=== PATIENT | male | born 1950 | race Caucasian/White ===

== ENCOUNTER 2023-12-28 11:09 | Emergency (ER) | payer OTHER, SELFPAY ==
--- NOTE | 2023-12-28 11:12 | XR_ITS ---
WS: [id number] XR chest 1V portable [id number] REASON FOR EXAM: cp FINDINGS: Mild tortuosity of the thoracic aorta. Normal heart size. Calcified granulomas disease in both hemithoraces. Apical subpleural bullous disease bilaterally. Flattening of the hemidiaphragms. No acute or subacute pulmonary parenchymal or pleural abnormality. No significant abnormality of the bony thorax. IMPRESSION: Upper lobe bullous lung disease with mild hyperexpansion. No acute chest abnormality.
--- NOTE | 2023-12-28 11:14 | ECG_ITS ---
[facility] Test Date: 2023-12-28 Pat Name: Pranay Clark Department: Room: Gender: Male Director Prison: : 1950 Requested By: Edgar Moore Order Number: [id number] Marcie MD: Gee Smith M.D. Measurements Intervals [place] Rate: 103 P: 77 AL: 148 QRS: 83 QRSD: 89 T: 68 QT: 312 QTc: 409 Interpretive Statements SINUS TACHYCARDIA ANTEROSEPTAL MYOCARDIAL INFARCTION , OF INDETERMINATE AGE [40+ ms Q WAVE IN V1-V4] No previous ECG available for comparison Electronically Signed On 12-28-2023 11:37:50 HUMAN RESOURCES RECEPTIONIST by Gee Smith M.D. [id number]
[2023-12-28 11:16] VITALS: BP 169/77; PULSE 103; RESP 16; TEMP 36.3; O2SAT 95; BMI 18.3
--- NOTE | 2023-12-28 11:31 | ED_ITS ---
HPI - Chest Pain 2 General: Chief Complaint: Chest Pain Stated Complaint: [facility] sent, chest pain Time Seen by Provider: 12/28/23 11:21 Mode of arrival: ambulatory Limitations: no limitations History of Present Illness: 73-year-old male states that he was driv ing roughly an hour ago started having chest pain states it is a pressure type pain in the center of his chest went down his right arm he is having some shortness of breath with that as well. He states that he felt lightheaded and slightly diaphoretic states that the pain is since resolved he still has some mild pain in his right arm he does have a history of hypertension along with high cholesterol and is a smoker no history of coronary artery disease. Associated symptoms: Reports dyspnea; Deny abdominal pain, fever(s), nausea or vomiting Review of Systems 2 Const: Denies: fever(s), chills, body aches or change in appetite ENMT: Denies: throat pain or dental pain Card: Reports: chest pain Resp: Reports: dyspnea GI: Denies: abdominal pain, nausea, vomiting or diarrhea Musc: Denies: neck pain or back pain Skin/Breast: Denies: rash Neuro: Denies: headache(s) Physical Exam 2 Const: COMMON NORMALS: patient oriented x3 and healthy appearing HENMT: COMMON NORMALS: normocephalic and atraumatic HEAD & SCALP: n ormocephalic and atraumatic Eye: COMMON NORMALS: Equal, round and reactive pupils present and EOMs intact bilaterally PUPIL: Yes Equal, round and reactive pupils present Neck/C-Spine: COMMON NORMALS: full ROM and supple Chest: COMMONS NORMALS: normal inspection of the chest and normal palpation of entire chest wall Resp: COMMON NORMALS: normal respiratory effort, No retractions, No use of accessory muscles and clear to auscultation bilaterally AUSCULTATION: clear to auscultation bilaterally Cardio: COMMON NORMALS: regular rate, regular rhythm and No murmurs present (Cardio) RATE: regular rate RHYTHM: regular rhythm GI: COMMON NORMALS: Normal to inspection, nondistended, normoactive bowel sounds present, Soft to palpation, non-tender and no masses PALPATION: Yes Soft to palpation Extremity: COMMON NORMALS: normal to inspection and full ROM Neuro: COMMON NORMALS: patient oriented x3, moves all extremities and no focal motor deficits Psych: COMMON NORMALS: mental status grossly normal, Normal thought process present and cooperative THOUGHT PROCESS: Normal thought process present Skin: COMMON NORMALS: no rashes or lesions noted and no wounds GENERAL SKIN EXAM: no rashes or lesions noted Course 2 Vital Signs: Vital signs: Vital Signs Temperature 97.3 F L 12/28/23 11:16 Pulse Rate 91 12/28/23 12:14 Respiratory Rate 18 12/28/23 12:14 Blood Pressure 137/93 12/28/23 12:14 Pulse Oximetry 96 12/28/23 13:28 Oxygen Delivery Me thod Room Air 12/28/23 13:28 MDM - Chest Pain Medical Decision Making Patient presents here with chest pain since resolved his initial repeat troponin here is normal he states he feels much improved would like to go home he states he will follow-up with his primary care doctor he is to return if worsening he understands agrees to plan. Medical Records I reviewed the patient's medical records. Lab Data I reviewed the patient's lab results. 12/28/23 11:27 12/28/23 11:27 Laboratory Results WBC 7.84 10^3/uL (3.29-11.43) 12/28/23 11:27 RBC 4.59 10^6/uL (3.85-5.65) 12/28/23 11:27 Hgb 15.20 g/dL (11.27-16.99) 12/28/23 11:27 Hct 45.1 % (37-53) 12/28/23 11:27 MCV 98.3 fl (82-101) 12/28/23 11:27 MCH 33.1 pg (27-33) H 12/28/23 11:27 MCHC 33.7 g/dL (30-55) 12/28/23 11:27 RDW 12.6 % (12.1-15.1) 12/28/23 11:27 Plt Count 262 10^3/cmm (157-399) 12/28/23 11:27 MPV 9.4 fL (7.4-10.4) 12/28/23 11:27 Neut % (Auto) 58.8 % 12/28/23 11:27 Lymph % (Auto) 25.5 % 12/28/23 11:27 [place] % (Auto) 12.0 % 12/28/23 11:27 Eos % (Auto) 2.3 % 12/28/23 11:27 Baso % (Auto) 1.3 % 12/28/23 11:27 Neut # (Auto) 4.61 10^3/uL (1.8-7.7) 12/28/23 11:27 Lymph # (Auto) 2.0 10^3/uL (0.8-4.8) 12/28/23 11:27 [place] # (Auto) 0.9 10^3/uL (0.2-0.9) 12/28/23 11:27 Eos # (Auto) 0.2 10^3/uL (0.0-0.8) 12/28/23 11:27 Baso # (Auto) 0.1 10^3/uL (0.0-0.1) 12/28/23 11:27 Nucleated RBC % (auto) 0 % 12/28/23 11:27 Nucleated RBCs # 0.0 /100WBC 12/28/23 11:27 PT 13.60 SECONDS (12.1-14.9) 12/28/23 11:27 INR 1.00 (0.8-1.2) 12/28/23 11:27 Sodium 141 mmol/L (136-145) 12/28/23 11:27 Potassium 4.2 mmol/L (3.5-5.1) 12/28/23 11:27 Chloride 101 mmol/L (98-107) 12/28/23 11:27 Carbon Dioxide 26 mmol/L (22-29) 12/28/23 11:27 Anion Gap 18.2 (5-19) 12/28/23 11:27 BUN 14 mg/dL (8-23) 12/28/23 11:27 Creatinine 0.7 mg/dL (0.7-1.2) 12/28/23 11:27 GFR Calculation Not Reportable 12/28/23 11:27 Glucose 98 mg/dL (65-115) 12/28/23 11:27 Calculated Osmolality 292 mOsm/kg (285-295) 12/28/23 11:27 Calcium 9.2 mg/dL (8.5-10.5) 12/28/23 11:27 Total Bilirubin 0.5 mg/dL (0.15-1.2) 12/28/23 11:27 AST 28 U/L (0-40) 12/28/23 11:27 ALT 20 U/L (0-41) 12/28/23 11:27 Alkaline Phosphatase 83 U/L (40-130) 12/28/23 11:27 Troponin T Baseline 8 ng/L (0-15) 12/28/23 11:27 Troponin T 120 Minute 10.20 ng/L (0-15) 12/28/23 13:28 Delta Troponin T 2.20 ABS# (0-10) 12/28/23 13:28 Total Protein 7.5 g/dL (6.6-8.7) 12/28/23 11:27 Albumin 4.5 g/dL (3.5-5.2) 12/28/23 11:27 Globulin 3.0 g/dL (1.3-4.6) 12/28/23 11:27 Lipase 29 U/L (13-60) 12/28/23 11:27 All radiology interpretation(s) finalized by discharge EKG Data EKG 1: I personally reviewed and interpreted this EKG as follows: EKG interpretation date: 12/28/23 EKG interpretation time: 11:14 Interpretation: sinus tach hr [address] elevation qrs 89 qtc 372 EKG 2: I personally reviewed and interpreted this EKG as follows: EKG interpretation date: 12/28/23 EKG interpretation time: 13:02 Interpretation: nsr hr [address] elevation qrs 81 qtc 379 Discharge Plan Discharge Patient Disposition: Home Clinical Impression: Chest pain Condition: Stable Prescriptions: No Action multivitamin Tablet 1 tab PO QAM rosuvastatin 20 mg Tablet 10 mg PO DAILY Vitamin D3 125 mcg (5,000 unit) Tablet 5,000 unit PO BID Refresh Plus 0.5 % Dropperette 1 drp OPHTHALMIC (EYE) BID Discharge Orders: Discharge ED (Routine); Ordered 12/28/23 Ordered By: Edgar Moore Discharge Diet: Advance as tolerated Discharge Activity: Resume usual activity Patient Instructions: Chest Pain (ED) Coding Level of Care Code ED Soap Drier Operator for Dominick Woods
[2023-12-28 11:34] LABS: Basophils # 0.1 10^3/uL (0.0-0.1); Basophils % 1.3 %; Eosinophils # 0.2 10^3/uL (0.0-0.8); Eosinophils % 2.3 %; Hematocrit 45.1 % (37-53); Lymphocytes % 25.5 %; Mean Corpuscular HGB Conc 33.7 g/dL (30-55); Mean Corpuscular Hemoglobin 33.1 pg (27-33); Mean Corpuscular Volume 98.3 fl (82-101); Mean Platelet Volume 9.4 fL (7.4-10.4); Monocytes # 0.9 10^3/uL (0.2-0.9); Neutrophils # 4.61 10^3/uL (1.8-7.7); Neutrophils % 58.8 %; Nucleated Red Blood Cells % 0 %; Platelet Count 262 10^3/cmm (157-399); Red Blood Count 4.59 10^6/uL (3.85-5.65); Red Cell Distribution Width 12.6 % (12.1-15.1); White Blood Count 7.84 10^3/uL (3.29-11.43)
[2023-12-28 11:55] LABS: Alanine Aminotransferase 20 U/L (0-41); Albumin Level 4.5 g/dL (3.5-5.2); Alkaline Phosphatase 83 U/L (40-130); Anion Gap 18.2 (5-19); Aspartate Amino Transferase 28 U/L (0-40); Blood Urea Nitrogen 14 mg/dL (8-23); Calcium 9.2 mg/dL (8.5-10.5); Carbon Dioxide 26 mmol/L (22-29); Chloride 101 mmol/L (98-107); Creatinine Clr Calc Pharmacy 64.6044; Glucose 98 mg/dL (65-115); Lipase 29 U/L (13-60); Osmolality Calculated 292 mOsm/kg (285-295); Potassium 4.2 mmol/L (3.5-5.1); Sodium 141 mmol/L (136-145); Total Bilirubin 0.5 mg/dL (0.15-1.2); Total Protein 7.5 g/dL (6.6-8.7)
[2023-12-28 11:56] LABS: Troponin(5th) Baseline 8 ng/L (0-15)
--- NOTE | 2023-12-28 11:56 | PC.PHAR ---
Addendum entered by Darlene Zimmerman 12/28/23 13:53: [facility] faxed back and sent letter saying there is no documentation for the pt so no way to verify crestor mg Original Note: pt states he takes care of his medications-pt states the va told him he didnt have to take crestor pt states dr told him that about 4 months ago but states he has still been taking states stop taking monday12/25/23-pt states he was on a 81mg aspirin daily states the va dr lawrence 4 months ago-pt states he is now taking vitamin d3 bid and a multivitamin daily-pt states he is unsure of the mg of the crestor he has been taking but states he thinks it was half of a 20mg tab-[place]ing [place] med [place] to verify mg of crestor-
[2023-12-28 12:14] VITALS: BP 137/93; PULSE 91; RESP 18; O2SAT 95
--- NOTE | 2023-12-28 13:02 | ECG_ITS ---
[facility] Test Date: 2023-12-28 Pat Name: Pranay Clark Department: Room: Gender: Male Microarray Operations Vice President: : 1950 Requested By: Edgar Moore Order Number: [id number] Marcie MD: Gee Smith M.D. Measurements Intervals [place] Rate: 80 P: 63 [place]: 164 QRS: 75 QRSD: 81 T: 76 QT: 342 QTc: 397 Interpretive Statements SINUS RHYTHM ANTEROSEPTAL MYOCARDIAL INFARCTION , OF INDETERMINATE AGE [40+ ms Q WAVE IN V1-V4] Compared to ECG 12/28/2023 11:14:41 Sinus tachycardia no longer present Myocardial infarct finding still present Electronically Signed On 12-29-2023 9:36:07 LABORATORY ANIMAL FACILITY SUPERVISOR by Gee Smith M.D. [email or web address] INFORMATION [email or web address]/store/OM/[id number]
[2023-12-28 13:28] VITALS: O2SAT 96
--- NOTE | 2023-12-29 10:42 | PC.SOCIAL ---
[facility]
== END 2023-12-28 14:17 | disposition home or self-care (01) ==
PROVIDERS: Emergency Provider Emergency Medicine
DX: R07.9 Chest pain, unspecified (principal)
CPT/HCPCS: 36415; 71045; 80053; 83690; 84484; 85025; 85610; 93005; 99285

== ENCOUNTER 2024-01-25 08:46 | Outpatient (CLI) | payer OTHER, SELFPAY ==
--- NOTE | 2024-01-25 | ECG_ITS ---
[facility] Test Date: 2024-01-25 Pat Name: Pranay Clark Department: Room: Gender: Male Clinical Rehabilitation Specialist: : 1950 Requested By: Lizzie Dwyer Order Number: [id number] Marcie MD: Ramos Bishop M.D. Interpretive Statements NAME OF STUDY: EXERCISE SESTAMIBI STRESS TEST INDICATION:, PROCEDURE: The baseline electrocardiogram showed normal sinus rhythm with a poor R wave progression. Possible old anteroseptal [place].. At the baseline, the patient's blood pressure was 160/94 mm Hg with a heart rate of 100. The patient exercised for 5 minutes and 59 seconds on a standard Omer protocol. Patient attained a maximum heart rate of 127 beats per minute(86% of the maximum predicted heart rate) with a blood pressure at the peak exercise of 192/81 mm Hg. The EKG at the peak exercise revealed no significant changes. Patient did not have any chest pain or any significant arrhythmis with the exercise Sestamibi was injected 1 minute prior to the peak exercise During the recovery phase, there were no new changes. Blood pressure at the end of the recovery phase was 137/76 mm Hg with a heart rate of 98 per minute. CONCLUSION: 1. No significant EKG changes with the treadmill exercise 2. No exercise-induced chest pain or cardiac arrhythmia 3. Slightly impaired exercise tolerance, attained a maximum of 7 point METs 4. Sestamibi/Sestamibi perfusion results pending; see separate report. Electronically Signed On 01-27-2024 20:48:31 VENEER LATHE OPERATOR by Ramos Bishop M.D. [email or web address] Access [id number]
--- NOTE | 2024-01-25 09:37 | NMCV_ITS ---
NM oli perf SPECT r/s* [id number] Pranay Clark Age: 73 Gender: M : 1950 Exam Date: 01/25/2024 09:59 Ordering Phys: Lizzie Dwyer MD Technologist: JETHRO Gonzalez Exam Location: [facility] Indications: ATHEROSCLEROTIC HEART DISEASE, CHEST PRESSURE STRESS TEST [facility] IMAGE PROTOCOL Rest/Stress 1 Exercise Day Radiopharmaceutical Dose (mCi) Administration Site Administered by Rest: Tc-99m 10.6 IV JETHRO Sanchez Sestamibi Stress:Tc-99m 32.2 IV JETHRO Sanchez Sestamibi Rest: 25-Jan-2024 0 Discovery 630 Stress: 25-Jan-2024 30 Discovery 630 Radiopharmaceutical was injected at 86 % maximum heart rate. Images obtained in supine and prone position. SPECT RESULTS Technical Quality: Excellent Raw Data Analysis: Normal Image Corrections: No attenuation or motion correction applied Summed Stress Score: 4 Summed Rest Score: 4 Summed Difference Score: 1 PERFUSION FINDINGS Small to moderate area of minimal moderately decreased tracer uptake involving the mid and apical inferior, mid inferoseptal and apical septal regions. Subtle area of reversibility was noted in the mid inferior region FUNCTIONAL RESULTS (calculated via Gated SPECT) Stress Image LV EF (%): 78 Stress EDV (mL):54 TID: 0.81 Stress ESV (mL):12 FUNCTIONAL FINDINGS: Segmental wall motion analysis revealing no gross wall motion abnormalities IMPRESSIONS 1. Myocardial perfusion imaging revealing small to moderate area of minimal to moderately decreased tracer uptake involving the inferior, inferoseptal and apical regions with a subtle areas of reversibility suggesting myocardial scarring in the distribution of the right coronary artery with subtle areas of kimberlyn-infarction ischemia. 2. Normal LV ejection fraction 78%. 3. LV wall motion analysis revealing no gross wall motion abnormalities. 4 . Normal LV volume No similar previous studies are available for comparison Dr Ramos Bishop MD FAC (Electronically Signed) Final Date: 25 January 2024 16:47 S
[2024-01-25 09:43] VITALS: BMI 19.0
[2024-01-25 11:11] VITALS: BP 137/76; PULSE 96
== END 2024-01-25 08:47 | disposition home or self-care (01) ==
LOC: CDL 08:48
PROVIDERS: PCP Family Medicine; Visit Provider Family Medicine
DX: I25.10 Atherosclerotic heart disease of native coronary artery without angina pectoris (principal); R07.89 Other chest pain
CPT/HCPCS: 36415; 78452; 93017; 96374; A9500

== ENCOUNTER → 2024-04-30 12:41 | Outpatient (BNVA) | payer OTHER, SELFPAY | PROVIDERS: PCP Family Medicine; Visit Provider Dermatology | DX: L72.0 Epidermal cyst (principal); L70.8 Other acne; D48.5 Neoplasm of uncertain behavior of skin; D22.5 Melanocytic nevi of trunk; L81.4 Other melanin hyperpigmentation | CPT/HCPCS: 11102; 99203 ==

== ENCOUNTER → 2024-08-26 07:41 | Outpatient (BNVA) | payer OTHER, SELFPAY | PROVIDERS: PCP Family Medicine; Referring Provider Family Medicine; Visit Provider Internal Medicine Cardiovascular Disease | DX: R94.39 Abnormal result of other cardiovascular function study (principal); I10 Essential (primary) hypertension; Z72.0 Tobacco use | CPT/HCPCS: 99204 ==

== ENCOUNTER → 2024-10-16 10:00 | Outpatient (BNVA) | payer OTHER, SELFPAY | PROVIDERS: PCP Family Medicine; Referring Provider Family Medicine; Visit Provider Surgery | DX: R13.10 Dysphagia, unspecified (principal) | CPT/HCPCS: 99204 ==

== ENCOUNTER 2024-10-28 09:11 | Outpatient (CLI) | payer OTHER, SELFPAY ==
--- NOTE | 2024-10-28 10:00 | FL_ITS ---
WS: [id number] Exam: FL barium swallow modifd [id number] Date/Time of Exam: 10/28/2024 9:49 AM Reason For Exam: Fluoroscopy time: 3min 23.174551otx minutes # of spot films: 0 Modified barium swallow test is performed in conjunction with the speech therapy service. The patient experienced moderate spillage and pooling of all consistencies of barium mixture foodstuf fs into the vallecula. The patient had significant penetration into the laryngeal inlet when swallowi ng thin liquid barium. Mild penetration also observed when the patient ingested nectar consistency ba rium foodstuffs. No aspiration occurred. The patient had some difficulty swallowing the barium tablet however the tablet passed into the stomach without obstruction. FL/FL barium swallow modifd [id number] IMPRESSION: 1. The patient experienced penetration into the laryngeal inlet particularly wh en thin liquid barium was ingested. Mild penetration also observed with nectar consistency liquid. No aspiration was identified. Other findings as detailed ab ove.
== END 2024-10-28 09:12 | disposition home or self-care (01) ==
LOC: RAD 09:11
PROVIDERS: PCP Family Medicine; Visit Provider Surgery
DX: R93.3 Abnormal findings on diagnostic imaging of other parts of digestive tract (principal); R13.10 Dysphagia, unspecified
CPT/HCPCS: 74230; 92611

== ENCOUNTER → 2024-12-04 15:17 | Outpatient (BNVA) | payer OTHER, SELFPAY | PROVIDERS: PCP Family Medicine; Visit Provider Surgery | DX: R13.13 Dysphagia, pharyngeal phase (principal) | CPT/HCPCS: 99212 ==

== ENCOUNTER → 2024-12-06 08:49 | Outpatient (BNVA) | payer OTHER, SELFPAY | PROVIDERS: PCP Family Medicine; Visit Provider Internal Medicine Cardiovascular Disease | DX: I10 Essential (primary) hypertension (principal); I25.9 Chronic ischemic heart disease, unspecified; Z87.891 Personal history of nicotine dependence | CPT/HCPCS: 99214 ==

== ENCOUNTER 2025-02-06 07:39 | Outpatient (CLI) | payer OTHER, SELFPAY ==
--- NOTE | 2025-02-06 07:50 | CTR_ITS ---
PROCEDURE INFORMATION: Exam: CT Neck With Contrast Exam date and time: 02/06/2025 8:19 AM Age: 74 years old Clinical indication: Dysphagia / difficulty swallowing; Additional info: Worsening dysphagia TECHNIQUE: Imaging protocol: Computed tomography of the neck with contrast. Radiation optimization: All CT scans at this facility use at least one of these dose optimization techniques: automated exposure control; mA and/or kV adjustment per patient size (includes targeted exams where dose is matched to clinical indication); or iterative reconstruction. Contrast material: OMNI 350; Contrast volume: 100 ml; Contrast route: INTRAVENOUS (IV); COMPARISON: No relevant prior studies available. RADIATION DOSE METRICS: Total DLP (mGy-cm): 142.01 FINDINGS: Salivary glands: Normal. Glands are normal in size. Pharynx: Unremarkable. No significant tonsillar enlargement. Larynx: Unremarkable. Epiglottis is normal. Thyroid: Normal. No enlarged or calcified nodules. Trachea: Visualized trachea is unremarkable. Lungs: Nodular apical scarring, pleural blebs and emphysematous change is noted. Lymph nodes: There is no suspicious cervical lymphadenopathy. Calcified lymphadenopathy is noted in the right tracheoesophageal groove measuring up to 12 mm in maximum short axis dimension. Mediastinal lymphadenopathy is incompletely imaged measuring at least 11 mm in maximum short axis dimension in the aortopulmonary window. Bones/joints: Cervical spondylosis is noted. Soft tissues: Unremarkable. No significant soft tissue swelling. CT/CT neck w con* [id number] IMPRESSION: No suspicious soft tissue mass, drainable fluid collection in the neck. Mediastinal lymphadenopathy incompletely imaged. CT of the thorax with intravenous contrast may be performed to more completely imaged.
[2025-02-06] MEDS: iohexol 350 mg/mL 500 mL Btl (per mL) IV (08:29)
== END 2025-02-06 07:40 | disposition home or self-care (01) ==
PROVIDERS: PCP Family Medicine; Visit Provider Otolaryngology
DX: R13.14 Dysphagia, pharyngoesophageal phase (principal); J98.4 Other disorders of lung; R91.8 Other nonspecific abnormal finding of lung field; J43.9 Emphysema, unspecified; I89.8 Other specified noninfective disorders of lymphatic vessels and lymph nodes; M47.892 Other spondylosis, cervical region
CPT/HCPCS: 70491

== ENCOUNTER 2025-02-20 07:58 | Outpatient (CLI) | payer OTHER, SELFPAY ==
--- NOTE | 2025-02-20 08:00 | FL_ITS ---
WS: [id number] FL barium swallow [id number] REASON FOR EXAM: DYSPHAGIA,PHARYNGOESOPHAGEAL FLUOROSCOPY TIME: 2min [id number] # OF SPOT FILMS: 1 FINDINGS: Patient was examined in the upright PA and lateral projections and in the prone GUZMAN position. The swallowing of barium was monitored fluoroscopically and multiple rapid sequence spot films obtained. Evaluation of the cervical esophagus demonstrated a significant persistent hypertrophic cricopharyngeal narrowing during swallowing and with a larger swallow significant aspiration was identified. The remainder of the examination was performed with small swallows of barium with no further aspiration. Patient had momentary episode of coughing which he noted was common place for him. There was minimal dysmotility in the thoracic esophagus with intermittent tertiary contractions. No significant hiatal hernia and no stricture. FL/FL barium swallow [id number] IMPRESSION: Significant cricopharyngeal sphincter hypertrophy and spasm which resulted in a single episode of significant aspiration during swallowing in the upright posi tion. Minimal dysmotility in the thoracic esophagus. No esophageal stricture.
== END 2025-02-20 07:59 | disposition home or self-care (01) ==
PROVIDERS: PCP Family Medicine; Visit Provider Otolaryngology
DX: R13.14 Dysphagia, pharyngoesophageal phase (principal); R93.89 Abnormal findings on diagnostic imaging of other specified body structures
CPT/HCPCS: 74220

== ENCOUNTER → 2025-04-18 08:40 | Outpatient (BNVA) | payer OTHER, SELFPAY | PROVIDERS: PCP Family Medicine; Visit Provider Physician Assistant | DX: M79.642 Pain in left hand (principal); M65.342 Trigger finger, left ring finger | CPT/HCPCS: 73130; 99204 ==

== ENCOUNTER → 2025-05-01 12:49 | Outpatient (BNVA) | payer OTHER, SELFPAY | PROVIDERS: PCP Family Medicine; Visit Provider Dermatology | DX: L72.0 Epidermal cyst (principal); L70.8 Other acne; D22.5 Melanocytic nevi of trunk; L81.4 Other melanin hyperpigmentation; L82.1 Other seborrheic keratosis; D48.5 Neoplasm of uncertain behavior of skin | CPT/HCPCS: 11102; 99213 ==

== ENCOUNTER → 2025-06-26 12:49 | Outpatient (BNVA) | payer OTHER, SELFPAY | PROVIDERS: PCP Family Medicine; Visit Provider Internal Medicine Cardiovascular Disease | DX: I25.9 Chronic ischemic heart disease, unspecified (principal); I10 Essential (primary) hypertension; E78.5 Hyperlipidemia, unspecified; R91.1 Solitary pulmonary nodule; M65.342 Trigger finger, left ring finger; F32.A Depression, unspecified; Z79.82 Long term (current) use of aspirin; F17.210 Nicotine dependence, cigarettes, uncomplicated | CPT/HCPCS: 99214 ==

== ENCOUNTER 2025-07-31 05:47 | Day surgery (SDC) | payer OTHER, SELFPAY ==
[2025-07-31] VITALS (8 sets, daily range): BP systolic 92–154; BP diastolic 53–97; PULSE 60–78; RESP 16–18; TEMP 36.3–36.4; O2SAT 95–98; BMI 19.4
[2025-07-31] MEDS: acetaminophen 1,000 MG/100 ML PIGGYBACK 400 MG IV (06:23)
--- NOTE | 2025-07-31 07:04 | W.PM.OPSFHP ---
Same Day Surgery H&P Indication for Procedure/HPI DATE OF PROCEDURE: July 31, 2025 CHIEF COMPLAINT/INDICATIONFOR SURGICAL PROCEDURE: Left ring finger trigger PREOP DIAGNOSIS: Left ring finger trigger PLANNED PROCEDURE: Operation Date: 07/31/25 07:00 Proposed Procedures p LEFT RING Trigger Finger Release(Left) - Earnest Sandy, DO Medications/Allergies* Home Medications ?Medication ?Instructions ?Recorded ?Confirmed ?Type carboxymethylcellulose sodium 0.5 1 drp ophthalmic (eye) BID 12/28/23 07/29/25 History % eye drops in a dropperette (Refresh Plus) cholecalciferol (vitamin D3) 125 5,000 unit PO BID 12/28/23 07/29/25 History mcg (5,000 unit) tablet (Vitamin D3) multivitamin 1 tab PO QAM 12/28/23 07/29/25 History aspirin 81 mg tablet,delayed 81 mg PO DAILY 08/26/24 07/29/25 History release (Adult Aspirin Regimen) diclofenac sodium 1 % topical gel 2 g topical ONCE PRN Pain 04/18/25 07/29/25 History (Voltaren Arthritis Pain) tamsulosin 0.4 mg capsule (Flomax) 0.4 mg PO DAILY 04/18/25 07/29/25 History trazodone 100 mg tablet 50 mg PO DAILY 07/29/25 07/29/25 History Allergies/Adverse Reactions Allergy/AdvReac Type Severity Reaction Status Date / Time Penicillins Allergy ALGY-Anaphy Verified 07/29/25 14:15 laxis Current Medications: Generic Name Dose Route Start Last Admin Trade Name Freq PRN Reason Stop Dose Admin Sodium Chloride 1,000 mls @ 30 mls/hr 07/31/25 06:00 07/31/25 06:24 Sodium Chloride 0.9% IV 08/01/25 05:59 30 mls/hr .Q24H FARRUKH Administration Pertinent History/Comorbid Conditions* Medical History (Updated 07/15/25 @ 09:19 by Margaret Gallardo) Ischemic heart disease Essential hypertension Social History Smoking and tobacco/nicotine status: current every day tobacco/nicotine user (Quit 11/03/24) cigarettes Alcohol intake: current Alcohol intake frequency: 0-2 Drinks per Day Pertinent Exam Findings alert, oriented x 3, operative site marked and procedure specific exam findings Please refer to detail orthopedic examination on 04/18/2025 listed below: Left Hand exam-negative Tinel's and negative Phalen's test. . Full range of motion in fingers and wrist and fingers are warm and well-perfused with normal cap refill under 2 seconds. Radial pulse 2+, no intrinsic muscle weakness noted. Left ring finger?A1 stephanie tenderness mechanical locking and catching Recommendations Risks and benefits of procedure reviewed and Patient/family agree to proceed Surgery/Procedure today Other Plans: Plan to proceed to the OR today for left ring finger trigger release. Patient understands the ins outs procedure the risk benefits complication alternatives surgical nonsurgical treatment options. Understanding risk of surgery patient was proceed with surgical invention. All questions answered at this time. Coding Level of Care Code Acute Code for g Fwd
--- NOTE | 2025-07-31 07:38 | P.BOP_ITS ---
Date of Procedure: 07/31/2025 Surgeon: Earnest Sandy DO Highway Construction Inspector(s): None Procedure(s) performed: Left ring finger trigger release Findings of the procedure(s): Underwent procedure without issues or complications taken recovery stable condition Estimated blood loss: 1 mL Specimen(s) removed: None Post-operative diagnosis: Left ring finger trigger
--- NOTE | 2025-07-31 07:38 | PM.OP ---
Operative Report Date of procedure: July 31, 2025 Surgeon: Earnest Sandy DO Procedure: Preoperative diagnosis: Left ring finger trigger Post-op diagnosis: Same Procedure done: Left Ring finger?trigger?release Surgeon: Earnest Sandy DO Estimated blood loss: 1cc Tourniquet time 4mins Complications: None Condition: stable Disposition: same day Brief History: Patient's been seen and worked up in the outpatient setting and findings consistent with preoperative diagnosis of Left Ring finger?trigger.? He is failed conservative treatment.? Continues to have mechanical locking and catching.? Severe pain as well.? We talked about treatment options nonoperative versus operative intervention.? ?Patient understands the risk benefits complication alternatives of surgical nonsurgical treatment options.? Understanding his risks with surgery he elects proceed with surgical intervention.? Consent obtained in the preoperative holding area.? Here today to proceed with surgical intervention for left ring finger trigger release, all questions answered. Procedure: Patient was seen and evaluated in the preoperative holding area.? Consent was reviewed and signed with patient.? Seen evaluated by Anesthesia Department.? Once cleared for surgery was brought back to the operative suite.? Placed in supine position on the OR table all bony prominences well-padded patient properly secured to the bed.? Patient's Left arm was then placed to the armboard.? A nonsterile tourniquet applied to the Left upper arm.? Patient's Left upper extremity was then prepped and draped in standard orthopedic fashion.? Final timeout performed.? Patient received appropriate preoperative antibiotics. Esmarch tourniquet was used exsanguinate the Left upper extremity tourniquet insufflated to 250 mmHg. Under sterile aseptic technique local digital block was performed to the Left Ring finger.? Once appropriately anesthetized a standard longitudinal/oblique incision was made centering over the A1 stephanie following patient's flexor crease.? Sharp scalpel incision was made only through skin and then switched to Littler dissection scissors and spread longitudinally directly over the flexor tendon sheath.? I then mobilized both radially and ulnarly and Kasdan retractors were used and placed by my pastrycook's assistant to protect neurovascular bundle.? Next I visualized the A1 stephanie and this was incised with a scalpel.? I then switched to dissection scissors and?released the A1 stephanie both proximally as well as distally to its entirety.? Significant tendon sheath fluid was noted consistent with inflammation.? Mild fraying of the flexor tendons noted but no tear.? At this point I utilized a rag nail and pulled the tendons FDS and FDP out of the incision and no?triggering was noted.? I then had anesthesia wake up the patient and patient was able to actively flex and extend with no?triggering.? This point thorough irrigation was performed.? Tourniquet deflated hemostasis satisfactory with bipolar.? I then subsequently closed the incision with interrupted nylon suture.? Xeroform 4 x 4's, Kerlix and an Brandon wrap was applied for a bulky soft dressing.? Patient was then subsequently awakened from anesthesia and taken to PACU in stable condition tolerated procedure without issues. Disposition: Patient taken back in stable condition recovering well.? Patient will receive appropriate discharge instruction as well as pain medication postoperatively.? Patient to follow-up with me in the office in 2 weeks for repeat evaluation and incision check.? Patient understands that any questions or concerns and contact the office.? All questions answered.
[2025-07-31] MEDS: ROPivacaine 0.5% SDV 30 mL 25 MG INJECTION (07:39)
--- NOTE | 2025-07-31 09:48 | ANE.PACU2 ---
Inpatient post-anesthesia follow up: Airway intact: Yes Vital signs: Temperature 97.4 F Pulse Rate 65 Respiratory Rate 17 Blood Pressure 136/68 Pulse Oximetry 97 Oxygen Delivery Me thod Room Air Oxygen Flow Rate Fraction of Inspir ed Oxygen Hydration adequate: Yes Nausea and vomiting: No Pain level: controlled
== END 2025-07-31 08:45 | disposition home or self-care (01) ==
PROVIDERS: PCP Family Medicine; Visit Provider Student in an Organized Health Care Education/Training Program
PROC: (CPT 26055; principal; 2025-07-31 07:00)
DX: M65.342 Trigger finger, left ring finger (principal); Z79.82 Long term (current) use of aspirin; I10 Essential (primary) hypertension; I25.9 Chronic ischemic heart disease, unspecified; F17.210 Nicotine dependence, cigarettes, uncomplicated
CPT/HCPCS: 26055; J0131; J1885; J2704; J2795; J3010; J3490; J7030; J9999

== ENCOUNTER → 2025-08-13 14:28 | Outpatient (BNVA) | payer OTHER, SELFPAY | PROVIDERS: PCP Family Medicine; Visit Provider Physician Assistant | DX: Z98.890 Other specified postprocedural states (principal) | CPT/HCPCS: 99024 ==

== ENCOUNTER 2025-09-09 16:53 | Emergency (ER) | payer OTHER, SELFPAY ==
[2025-09-09 16:55] VITALS: BP 156/86; PULSE 75; TEMP 36.7; O2SAT 95; BMI 19.0
[2025-09-09 17:03] VITALS: BP 160/117; PULSE 76; O2SAT 96
[2025-09-09 17:41] VITALS: BP 159/85; PULSE 71; O2SAT 96
--- NOTE | 2025-09-09 17:41 | W.ED.EXTPRO ---
HPI - Extremity Problem General: Chief complaint: Extremity Problem,Nontraumatic Stated complaint: chidi bazan arm into hand pain Time Seen by Provider: 09/09/25 17:06 Source: patient Mode of arrival: ambulatory Limitations: no limitations History of Present Illness: Patient is a very pleasant 75-year-old male who presents to ED today along with his significant other for evaluation of intermittent pain and burning involving his left upper extremity. Patient states has had this complaint intermittently for almost 20 years. 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 Patient states after detention he went a good 10 to 12 years without having any issues but over the past 6 to 8 weeks symptoms have returned. He feels like pain seems to be worse with certain positions-reporting it is worse at night (i.e when he has his arm extended on top of his significant other or if his arm is flexed under his head). He states the burning pain can be unbearable causing him to not be able to sleep. He states he experiences burning to the volar aspect of the upper arm and often times his entire arm will go numb. He does not complain of any neck pain. Denies any sharp, stabbing, shooting pains. Does not feel like symptoms are significantly worsened with reaching overhead. Of note-triage states that the doctor sent him here . He reportedly contacted his cardiology office and told them about the arm pain-he states he spoke to the front end loader driver office who thought his arm pain could be cardiac related thus sending him here. There is nothing based on his history to suggest cardiac etiology. MD Complaint: extremity pain Onset (ago): year(s) Pain Consistency: intermittent Location: left and upper extremity Quality: burning Radiation: none Exacerbating factors: other (certain positioning) Associated symptoms: Deny chest pain, fever(s) or rash Related Data Home Medications ?Medication ?Instructions ?Recorded ?Confirmed carboxymethylcellulose sodium 0.5 1 drp ophthalmic (eye) BID 12/28/23 08/13/25 % eye drops in a dropperette (Refresh Plus) cholecalciferol (vitamin D3) 125 5,000 unit PO BID 12/28/23 08/13/25 mcg (5,000 unit) tablet (Vitamin D3) multivitamin 1 tab PO QAM 12/28/23 08/13/25 aspirin 81 mg tablet,delayed 81 mg PO DAILY 08/26/24 08/13/25 release (Adult Aspirin Regimen) diclofenac sodium 1 % topical gel 2 g topical ONCE PRN Pain 04/18/25 08/13/25 (Voltaren Arthritis Pain) tamsulosin 0.4 mg capsule (Flomax) 0.4 mg PO DAILY 04/18/25 08/13/25 trazodone 100 mg tablet 50 mg PO DAILY 07/29/25 08/13/25 Previous Rx's ?Medication ?Instructions ?Recorded nitroglycerin 0.4 mg sublingual 0.4 mg sublingual Q5M PRN chest 08/26/24 tablet pain #20 tabs metoprolol succinate 25 mg 12.5 mg (1/2 x 25 mg) PO DAILY #45 12/03/24 tablet,extended release 24 hr tabs nicotine 21 mg/24 hr daily 1 patch transdermal DAILY #28 ea 06/26/25 transdermal patch Allergies Allergy/AdvReac Type Severity Reaction Status Date / Time Penicillins Allergy ALGY-Anaphy Verified 09/09/25 17:03 laxis Review of Systems Const: Denies: fever(s), chills, body aches, fatigue or malaise Card: Denies: chest pain Resp: Denies: dyspnea Musc: Reports: extremity pain; Denies: neck pain, back pain, extremity swelling, joint pain, joint swelling, joint redness, joint warmth or joint stiffness Skin/Breast: Denies: rash or erythema Neuro: Reports: numbness in extremities; Denies: headache(s) or weakness in extremities PFSH ED PFSH: Medical History Ischemic heart disease Essential hypertension Social History Smoking and tobacco/nicotine status: current every day tobacco/nicotine user (Quit 11/03/24) cigarettes Alcohol intake: current Alcohol intake frequency: 0-2 Drinks per Day Physical Exam Const: COMMON NORMALS: no acute distress, average body habitus, patient oriented x3, no limitations, healthy appearing, alert and well nourished GENERAL APPEARANCE: cooperative Neck/C-Spine: COMMON NORMALS: full ROM, no lymphadenopathy and no meningeal signs GENERAL: Yes normal visual inspection, No anterior neck swelling and No submandibular swelling CERVICAL SPINE: No Cervical spine tenderness, No Paracervical muscle tenderness, No Trapezius muscle tenderness and No Lhermitte's sign positive Extremity: COMMON NORMALS: normal to inspection, full ROM, capillary refill normal, no joint enlargement and no clubbing, cyanosis or edema GENERAL: Yes normal exam except as noted LEFT UPPER EXTREMITY: Yes shoulder joint (full ROM ) and Yes elbow joint (full ROM) OTHER: L UE with normal pulses throughout extremity; sensation intact currently; no edema, color/temp changes noted Neuro: COMMON NORMALS: patient oriented x3, moves all extremities, no focal motor deficits and no sensory deficits noted SENSORIUM/ORIENTATION: Yes alert MENINGEAL SIGNS: Yes no meningeal signs Course Vital Signs: Vital signs: Vital Signs Temperature 98.0 F 09/09/25 16:55 Pulse Rate 71 09/09/25 17:48 Blood Pressure 159/85 09/09/25 17:48 Pulse Oximetry 96 09/09/25 17:48 Oxygen Delivery Me thod Room Air 09/09/25 17:41 MDM - Extremity (Nontraumatic) Medical Decision Making Seems to be a longstanding issue but causing him significant discomfort over the past 6 to 8 weeks. I think it is reasonable to start with nerve conduction studies. The extremity is neurovascularly intact on today's exam. Nothing to suggest any type of cervical cord compression/motor lesion. Patient seems agreeable to this plan and will also [facility] Medical Records I reviewed the patient's medical records. No radiology studies performed this visit Discharge Plan Discharge Patient Disposition: Home Clinical Impression: Neuralgia of left upper extremity Condition: Stable Prescriptions: No Action aspirin [Adult Aspirin Regimen] 81 mg tablet,delayed release (DR/EC) 81 mg PO DAILY nitroglycerin 0.4 mg tablet, sublingual 0.4 mg sublingual Q5M PRN (Reason: chest pain) Qty: 20 3RF Rx Instructions: do not exceed 3 doses per episode nicotine 21 mg/24 hr patch 24 hour 1 patch transdermal DAILY Qty: 28 1RF tamsulosin [Flomax] 0.4 mg capsule 0.4 mg PO DAILY diclofenac sodium [Voltaren Arthritis Pain] 1 % gel 2 g topical ONCE PRN (Reason: Pain) Rx Instructions: apply to single elbow, wrist or hand; for hand includes palm/fingers/back of hand metoprolol succinate 25 mg tablet extended release 24 hr 12.5 mg PO DAILY Qty: 45 3RF multivitamin Tablet 1 tab PO QAM cholecalciferol (vitamin D3) [Vitamin D3] 125 mcg (5,000 unit) Tablet 5,000 unit PO BID carboxymethylcellulose sodium [Refresh Plus] 0.5 % Dropperette 1 drp OPHTHALMIC (EYE) BID trazodone 100 mg Tablet 50 mg PO DAILY Discharge Orders: Discharge ED (Routine); Ordered 09/09/25 Ordered By: Comfort Dolan Referrals: Lizzie Dwyer MD [Primary Care Provider, Family Practice] Patient Instructions: Patient Portal & Abran Instructions Activity Restrictions/Additional Instructions: As we discussed, I think it is reasonable at this time to obtain nerve conduction studies to your left upper extremity (arm) for further evaluation of symptoms. Case management referral has been placed for this and they should reach out to you this week or next week to help set you up with this appointment. Print Language: Frisian Coding Level of Care Code ED Strand [employer] for Dominick Woods
[2025-09-09 17:48] VITALS: BP 159/85; PULSE 71; O2SAT 96
--- OUTSIDE RECORDS SUMMARY | 2025-09-09 18:51 | XMS_ITS | Encounter Summary ---
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 Name Role Phone Unavailable Primary Care Provider Unavailabl e Encounter Details Date Type Department Care Team (Late st Contact Info) Description 03/28/2019 Ancillary Orders [facility] Medicine- [facility] [address] [place] [address] Regina Waldron MD [address] [place] [address] Abdominal pain, generalized Social History Tobacco Use Types Packs/Day Years Used Date Smoking Tobacco: Never Assessed Comments Unknown Sex and Gender Information Value Date Recorded Sex Assigned at Not on file Legal Sex Unknown 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 Narrative 03/28/2019 12:39 PM CDT Exam: XR ABDOMEN W DECUB AND OR ERECT 2 VW Date/Time of Exam: 03/28/2019 10:53 AM Reason For Exam: See Diagnosis Diagnosis: Abdominal pain, generalized Supine and upright views of the abdomen are submitted. Air filled, non-dilated loops of large and small bowel are present which show a normal gas pattern. There is no evidence of free air under the diaphragms. Procedure Note Julián Martinez MD - 03/28/2019 Exam: XR ABDOMEN W DECUB AND OR ERECT 2 VW Date/Time of Exam: 03/28/2019 10:53 AM Reason For Exam: See Diagnosis Diagnosis: Abdominal pain, generalized Supine and upright views of the abdomen are submitted. Air filled, non-dilated loops of large and small bowel are present which show a normal gas pattern. There is no evidence of free air under the diaphragms. IMPRESSION: No evidence of ileus or small bowel obstruction. us Regina Waldron MD DIAGNOSTIC IMAGING ORDERA BLES Final Result documented in this encounter Visit Diagnoses Diagnosis Abdominal pain, generalized Abdominal pain, generalized documented in this encounter
--- OUTSIDE RECORDS SUMMARY | 2025-09-09 18:51 | XMS_ITS | Encounter Summary ---
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 Name Role Phone Lizzie Dwyer MD Primary Care Provider + [phone] Encounter Details Date Type Department Care Team (Late st Contact Info) Description 08/13/2025 Results Follow-Up [facility] [address] [place] [phone] Chris Go MD [address], [address] [place] [address] CT chest wo IV contrast Social History Tobacco Use Types Packs/Day Years Used Date Smoking Tobacco: Every Day Cigarettes 1 60 Started: 11/1964; Last attempted to quit: 11/06/2024 Smokeless Tobacco: Never Alcohol Use Standard Drinks/Week Comments Yes 4 (1 standard drink = 0.6 oz pur e alcohol) 6-9 beer per week AUDIT-C Answer Date Recorded Q1: How often do you have a drink containing alc ohol? Monthly or less 07/17/2025 Q2: How many drinks containi ng alcohol do you have on a typical day when you are drinking? 1 or 2 07/17/2025 Q3: How often do you have si x or more drinks on one occasion? Never 07/17/2025 PHQ-2 Answer Date Recorded Patient Health Questionnaire-2 Score 0 07/17/[address] 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 Gender Identity Not on file Sexual Orientation Not on file documented as of this encounter Plan of Treatment Upcoming Encounters Date Type Department Care Team (Late st Contact Info) Description 09/15/2025 9:15 AM CDT Office Visit [facility] [address] [place] [address] [phone] Chris Go MD [address] [place] [address] [phone] 11/18/2025 9:00 AM RN RESIDENTIAL Office Visit [facility] [address] [place] [address] [phone] Chris Go MD [address] [place] [address] [phone] documented as of this encounter Visit Diagnoses Not on filedocumented in this encounter Care Teams Burial Vault Deliverer And Installer Relationship Specialty Start Date End Date Lizzie Dwyer MD [address] [address] PCP - General Family Medicine 10/03/24 documented as of this encounter
--- OUTSIDE RECORDS SUMMARY | 2025-09-09 18:51 | XMS_ITS | Clinical Summary ---
Author Organization [facility] Address [address] [address] Phone Care Team Providers Care Application Support Engineer Name Role Phone Lizzie Dwyer MD Primary Care Provider Allergies Active Allergy Reactions Criticality Noted Date Comments Penicillins Shortness of breath High 03/23/1995 Medications aspirin 81 mg EC tablet Take 81 mg by mouth 1 (one) time each day. Active multivit-min/ferr ous fumarate (MULTI VITAMIN ORAL) Take by mouth 1 (one) time each day. Active cholecalciferol (Vitamin D3) 10 mcg (400 unit) tablet Take 400 Units by mouth 1 (one) time each day. Active metoprolol succinate XL (Toprol-XL) 25 mg 24 hr tablet Take 12.5 mg by mouth 1 (one) time each day. For Blood Pressure 4 Active nitroglycerin (Nitrostat) 0.[address] 0.4 mg under the tongue if needed for chest pain. Active nicotine (Nicoderm CQ) 14 mg/24 hr patchIndications: Nicotine dependence, cigarettes, uncomplicated Place 1 patch on the skin 1 (one) time each day at the same time. 30 patch 4 Active traZODone (Desyrel) 100 mg tabletIndications :insomnia associated with depression Take 100 mg by mouth every night. Active tamsulosin (Flomax) 0.4 mg 24 hr capsule Take 0.4 mg by mouth 1 (one) time each day. Active multivitamin tablet Take 1 tablet by mouth 1 (one) time each day. Active fexofenadine (Maritza) 60 mg tablet Take 1 tablet (60 mg total) by mouth 1 (one) time each day. 30 tablet 11 5 026 Active fluticasone (Flonase) 50 mcg/actuation nasal spray Administer 2 sprays into each nostril 1 (one) time each day. Shake gently. Before first use, prime pump. After use, clean tip and replace cap. 16 g 6 5 025 Active nicotine polacrilex (Nicorette) 2 mg gum Chew 1 each (2 mg total) if needed for smoking cessation. 100 each 5 Active tiotropium-olodat Dolores (Stiolto Respimat) 2.5-2.5 mcg/actuation mist inhalerIndication s:Chronic obstructive pulmonary disease, unspecified COPD type (CMS/HCC) Inhale 2 Inhalations 1 (one) time each day. 4 g 11 5 Active Active Problems Problem Noted Date Diagnosed Date Mediastinal lymphadenopathy 10/31/2024 Encounters Date Type Department Care Team Description 08/13/2025 10:43 AM CDT - 08/13/2025 11:59 PM CDT Hospital Encounter COMPUTED TOMOGRAPHY (CT)-MEDICAL OFFICE BUILDING [address] [place] [phone] Lung nodule Discharge Disposition: Discharged to Home or Self Care (Routine Discharge) 08/13/2025 Results Follow-Up PULMONOLOGY CLINIC MEDICAL OFFICE BUILDING [address] [place] [phone] chest wo IV contrast 07/17/2025 9:00 AM CDT Office Visit [facility]IN[facility] MEDICAL OFF[facility] BUILDING [address] [place] [phone] Chris Go MD Chronic obstructive pulmonary disease, unspecified COPD type (CMS/HCC) (Primary Dx); Solitary pulmonary nodule; Nicotine dependence, cigarettes, uncomplicated; Mediastinal lymphadenopathy; Centrilobular emphysema (CMS/HCC); Lung nodule from Last 3 Months Family History Medical History Relation Comments No Known Problems Brother Macular degeneration Father Macular degeneration Father's Brother No Known Problems Father's Sister No Known Problems Maternal Grandfather No Known Problems Maternal Grandmother Diabetes Mother No Known Problems Mother's Brother No Known Problems Mother's Sister Bone cancer Other No Known Problems Paternal Grandfather No Known Problems Paternal Grandmother No Known Problems Sister Anesthesia problems Neg Hx Malig Hypertension Neg Hx Malig Hyperthermia Neg Hx Pseudochol deficiency Neg Hx Relation Status Comments Brother Father Father's Brother Father's Sister Maternal Grandfather Maternal Grandmother Mother Mother's Brother Mother's Sister Other Paternal Grandfather Paternal Grandmother Sister Social History Tobacco Use Types Packs/Day Years Used Date Smoking Tobacco: Every Day Cigarettes 1 60 Started: 11/1964; Last attempted to quit: 11/06/2024 Smokeless Tobacco: Never Tobacco Cessation:Ready to Q uit: Not Asked; Counseling Given: Not Answered Alcohol Use Standard Drinks/Week Comments Yes 4 [...] Recorded Patient Health Questionnaire-2 Score 0 07/17/2025 [facility] - Mental Health Answer Date Recorde d Little interest or pleasure in doing things Not at all 07/17/2025 Feeling down, depressed, or hopeless Not at all 07/17/2025 Feeling of Stress Not on file 07/17/2025 Sex and Gender Information Value Date Recorded Sex Assigned at Not on file Legal Sex 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 Gender Identity Not on file Sexual Orientation Not on file Last Filed Vital Signs Vital Sign Reading Time Taken Comments Blood Pressure 155/78 07/17/2025 8:57 AM CDT Pulse 71 07/17/2025 8:57 AM CDT Temperature 36.7 C (98 F) 07/17/2025 8:57 AM CDT Respiratory Rate 18 07/17/2025 8:57 AM CDT Oxygen Saturation 98% 07/17/2025 8:57 AM CDT Inhaled Oxygen Concentration - - Weight 56.7 kg (125 lb) 07/17/2025 8:57 AM CDT Height 172.7 cm (5' 8 ) 07/17/2025 8:57 AM CDT Body Mass Index 19.01 07/17/2025 8:57 AM CDT Plan of Treatment Upcoming Encounters Date Type Department Care Team (Late st Contact Info) Description 09/15/2025 9:15 AM CDT Office Visit [facility]ULMONOLOGY CLINIC MEDICAL OFFICE BUILDING [address] [place] [address] [phone] Chris Go MD [address] [place] [address] [phone] 11/18/2025 9:00 AM DRESSING MACHINE OPERATOR Office Visit [facility]ULMONOLOGY [facility]IN[facility] MEDICAL OFFICE BUILDING [address] [place] [address] [phone] Chris Go MD [address] [place] [address] [phone] Health Maintenance Due Date Last Done Comments Lipid Panel 1950 MMR Vaccines (1 of 1 - Standard series) 1950 COVID-19 Vaccine (#1) 1954 Varicella Vaccines (1 of 2 - 13+ 2-dose series) 1962 Diabetes Screening 1967 Social Drivers of Health (SDoH) 1967 [facility] Lung Cancer Screening Shared Decision Making 1999 DTaP,Tdap,and Td Vaccines (3 - Td or Tdap) 10/20/2017 04/20/2017, 12/27/2006 RSV Vaccines (1 - 1-dose 75+ series) 2024 Influenza Vaccine (#1) 2025 , 09/08/2023, 09/10/2022, Additional history exists Complete Fall Risk Assessment 10/11/2025 10/11/2024, 10/11/2024, 10/11/2024, Additional history exists Creatinine Level 11/05/2025 11/05/2024 Potassium Level 11/05/2025 11/05/2024 Depression Screening 07/18/2026 07/17/2025 Pneumococcal Vaccine: 50+ Years Completed 01/15/2024, 04/20/2017, 04/14/2016, Additional history exists Pneumococcal Vaccine Completed 01/15/2024, 04/20/2017, 04/14/2016, Additional history exists Zoster Vaccines Completed 03/20/2024, 01/15/2024 HIB Vaccines Aged Out No longer eligi ble based on patient's age to complete this topic HPV Vaccines Aged Out No longer eligi ble based on patient's age to complete this topic Hepatitis A Vaccines Aged Out No long er eligible based on patient's age to complete this topic Hepatitis B Vaccines Aged Out No long er eligible based on patient's age to complete this topic IPV Vaccines Aged Out No longer eligi ble based on patient's age to complete this topic Meningococcal B Vaccine Aged Out No l onger eligible based on patient's age to complete this topic Meningococcal Vaccine Aged Out No nick diana eligible based on patient's age to complete this topic Rotavirus Vaccines Aged Out No longer eligible based on patient's age to complete this topic Procedures Procedure Name Priority Date/Time Associated Diagnosis Comments CT CHEST WO IV CONTRAST Routine 08/13/2025 10:48 AM CDT Lung nodule BASIC METABOLIC PANEL Routine 11/05/2024 10:05 AM DRESSING MACHINE OPERATOR Mediastinal lymphadenopathy from Last 3 Months or Most Recently Relevant to Health Maintenance Results * CT chest wo IV contrast (08/13/2025 10:48 AM CDT) Anatomical Region Laterality Modality Body Computed Tomogra phy 08/13/2025 11:3 0 AM CDT Narrative 08/13/2025 12:20 PM CDT EXAMINATION: Computed tomography of the chest without intravenous contrast HISTORY: Spiculated right upper lobe nodule; Patient preferred monitoring of nodule over resection. TECHNIQUE: Transaxial computed tomographic images of the chest were obtained without intravenous contrast according to the standard protocol. COMPARISON: CT chest 03/28/2095 FINDINGS: Again noted is biapical pleuroparenchymal scarring. A right upper lobe pulmonary nodule which is somewhat linear in configuration and measures approximately 7 mm and is unchanged. This may represent a manifestation of scarring. Calcified granulomas in the right upper and lower lobes are unchanged. A subpleural pulmonary nodule involving the left oblique fissure measuring approximately 4 mm is unchanged. Additional nodule within the left upper lobe measuring up to 3 mm is unchanged (Series 8, image 36). Redemonstrated spiculated subpleural pulmonary nodule in the right upper lobe measures approximately 0.9 x 1.3 cm, previously 1.1 x 0.8 cm. Thyroid gland is normal in appearance. Redemonstrated mediastinal lymphadenopathy with a retrotracheal calcified lymph node measuring approximately 1.2 cm, not significantly changed (series 2, image 20). Additional calcified mediastinal and bilateral hilar lymph nodes are not significantly changed with the calcified lymph nodes likely representing sequela of old granulomatous disease. The heart is normal in size. No pericardial effusion. Coronary arterial calcifications are noted. There is diffuse esophageal thickening redemonstrated which is unchanged and may indicate esophagitis. Normal caliber of the thoracic aorta and main pulmonary artery. Normal noncontrast appearance of the upper abdominal structures. No suspicious osseous lesions. Redemonstrated sclerotic degenerative changes at the L2-L3 level, unchanged since PET CT 10/03/2024. IMPRESSION: 1. Slight interval increase in size of spiculated subpleural pulmonary nodule in the right upper lobe. Continued follow-up is recommended if biopsy is not pursued. 2. Additional scattered pulmonary nodules are not significantly changed. The CT scan was performed using dose optimization techniques, as appropriate, including automated exposure control, adjustment of the mA and/or kV according to patient size, and/or iterative reconstruction technique. Electronically signed on 08/13/2025 12:20 PM by: Sabina Maldonado MD Procedure Note Sabina Maldonado MD - 08/13/2025 EXAMINATION: Computed tomography of the chest without intravenouscontrast HISTORY: Spiculated right upper lobe nodule; Patient preferred monitoringof nodule over resection. TECHNIQUE: Transaxial computed tomographic images of the chest wereobtained without intravenous contrast according to the standardprotocol. COMPARISON: CT chest 03/28/2095 FINDINGS: Again noted is biapical pleuroparenchymal scarring. A right upper lobepulmonary nodule which is somewhat linear in configuration and measuresapproximately 7 mm and is unchanged. This may represent a manifestation ofscarring. Calcified granulomas in the right upper and lower lobes areunchanged. A subpleural pulmonary nodule involving the left obliquefissure measuring approximately 4 mm is unchanged. Additional nodulewithin the left upper lobe measuring up to 3 mm is unchanged (Series 8,image 36). Redemonstrated spiculated subpleural pulmonary nodule in theright upper lobe measures approximately 0.9 x 1.3 cm, previously 1.1 x 0.8cm. Thyroid gland is normal in appearance. Redemonstrated mediastinallymphadenopathy with a retrotracheal calcified lymph node measuringapproximately 1.2 cm, not significantly changed (series 2, image 20).Additional calcified mediastinal and bilateral hilar lymph nodes are notsignificantly changed with the calcified lymph nodes likely representingsequela of old granulomatous disease. The heart is normal in size. No pericardial effusion. Coronary arterialcalcifications are noted. There is diffuse esophageal thickeningredemonstrated which is unchanged and may indicate esophagitis. Normal caliber of the thoracic aorta and main pulmonary artery. Normal noncontrast appearance of the upper abdominal structures. No suspicious osseous lesions. Redemonstrated sclerotic degenerativechanges at the L2-L3 level, unchanged since PET CT 10/03/2024. IMPRESSION: 1. Slight interval increase in size of spiculated subpleural pulmonarynodule in the right upper lobe. Continued follow-up is recommended ifbiopsy is not pursued. 2. Additional scattered pulmonary nodules are not significantlychanged. The CT scan was performed using dose optimization techniques, asappropriate, including automated exposure control, adjustment of the mAand/or kV according to patient size, and/or iterative reconstructiontechnique. Electronically signed on 08/13/2025 12:20 PM by: Sabina Maldonado MD Chris Go MD [facility] [place] Final Result * (ABNORMAL) Basic Metabolic Profile (11/05/2024 10:05 AM DRESSING MACHINE OPERATOR) Glucose 105(H) 70 - 100 mg/dL LAB CHEMISTRY METHOD 11/05/2024 11:41 AM DRESSING MACHINE OPERATOR [facility] BUN 11 9 - 20 mg/dL LAB CHEMISTRY METHOD 11/05/2024 11:41 AM DRESSING MACHINE OPERATOR [facility] Creatinine 0.72 0.66 - 1.25 mg/dl LAB CHEMISTRY METHOD 11/05/2024 11:41 AM DRESSING MACHINE OPERATOR [facility] BUN/Creatinine Ratio 15 - 17 LAB CHEMISTRY METHOD 11/05/2024 11:41 AM DRESSING MACHINE OPERATOR [facility] Sodium 137 135 - 145 mmol/L LAB CHEMISTRY METHOD 11/05/2024 11:41 AM DRESSING MACHINE OPERATOR [facility] Potassium 4.2 3.6 - 5.0 mmol/L LAB CHEMISTRY METHOD 11/05/2024 11:41 AM DRESSING MACHINE OPERATOR [facility] Chloride 106 101 - 111 mmol/L LAB CHEMISTRY METHOD 11/05/2024 11:41 AM DRESSING MACHINE OPERATOR [facility] Total Carbon Dioxide 30 22 - 30 mmol/L LAB CHEMISTRY METHOD 11/05/2024 11:41 AM DRESSING MACHINE OPERATOR [facility] Anion Gap 5(L) 9 - 17 mmol/L LAB CHEMISTRY METHOD 11/05/2024 11:41 AM DRESSING MACHINE OPERATOR [facility] Calcium 9.5 8.2 - 10.2 mg/dL LAB CHEMISTRY METHOD 11/05/2024 11:41 AM DRESSING MACHINE OPERATOR [facility] eGFR >60 >=60 mL/min/1.7 3 m2 LAB CHEMISTRY METHOD 11/05/2024 11:41 AM DRESSING MACHINE OPERATOR [facility] Blood Venous blood specimen / Unknown Venipuncture / Unknown 11/05/2024 10:05 AM DRESSING MACHINE OPERATOR 11/05/2024 10:05 AM DRESSING MACHINE OPERATOR us Chris Go MD LAB BLOOD ORDERABLES Final Resul t [facility] [address] [address] from Last 3 Months or Most Recently Relevant to Health Maintenance Insurance Advance Directives For more information, please contact: [phone] (7:30 AM - 5PM [facility], 7 days a week) * Full Code (Latest Code Status on File) Date Activated Date Inactivated Comments 11/06/2024 6:27 AM 11/06/2024 12:19 PM Care Teams Application Support Engineer Relationship Specialty Start Date End Date Lizzie Dwyer MD [address] [address] PCP - General Family Medicine 10/03/24
--- OUTSIDE RECORDS SUMMARY | 2025-09-09 18:51 | XMS_ITS | Clinical Summary ---
Author Organization [facility] Address [address] [facility] Attn: Epic Prelude ADT SHANNAN LANDA [address] Care Team Providers Care Clerk Of Court Name Role Phone Unavailable Primary Care Provider Unavailabl e Allergies Active Allergy Reactions Criticality Noted Date Comments Penicillins Shortness of Breath/ Wheezing,Other (See Comments) High 04/15/2025 Passed out Medications psyllium (METAMUCIL) Packet Take 1 Packet by mouth daily. Active multivitamin (DAILY-EV) tablet Take 1 Tablet by mouth daily. Active metoprolol succinate (TOPROL XL) 25 mg Extended Release 24 hour tablet Take 25 mg by mouth daily. Active carboxymethylce llulose (REFRESH EYE DROPS) 1 % solution 2 Drops 2 times daily as needed for Discomfort. Active aspirin (IZABELA CHEWABLE) 81 mg Tablet, Chewable Take 81 mg by mouth daily. Active cholecalciferol , Vitamin D3, (VITAMIN D3) 25 mcg (1,000 unit) Capsule Take by mouth daily. Active traZODone (DESYREL) 100 mg tablet Take 100 mg by mouth daily at bedtime. Active tamsulosin (FLOMAX) 0.4 mg capsule Take 0.4 mg by mouth daily. Active nicotine polacrilex 2 mg Lozenge by Mouth/Throat route. Active fluticasone propionate (FLONASE) 50 mcg/spray [place], Suspension nasal inhaler Administer in each nostril. 5 Active tiotropium-olod ateroL (STIOLTO RESPIMAT) 2.5-2.5 mcg/actuation metered inhaler Take 2 Puffs by inhalation daily. 5 Active fexofenadine (BAILEE) 60 mg tablet Take 60 mg by mouth daily. 5 Active nitroglycerin (NITROSTAT) 0.4 mg Tablet, Sublingual Place 0.4 mg under tongue every 5 minutes as needed. Active nicotine (NICODERM CQ) 14 mg/24 hr patch Apply 1 Patch to skin as directed every 24 hours. 4 Active nicotine (NICODERM CQ) 21 mg/24 hr patch Apply 1 Patch to skin as directed every 24 hours. 5 Active Active Problems Problem Noted Date Diagnosed Date Alcoholism 05/06/2025 Basal cell carcinoma of face 05/06/2025 Benign prostatic hyperplasia 05/06/2025 Chest pain, unspecified 05/06/2025 Chronic obstructive pulmonary disease 05/06/2025 Deficiency anemia 05/06/2025 Essential (primary) hypertension 05/06/2025 Impaired fasting glucose 05/06/2025 Megaloblastic anemia due to alcoholism Solitary pulmonary nodule 05/06/2025 Mediastinal lymphadenopathy 10/31/2024 Encounters Date Type Department Care Team Description 08/27/2025 Telephone [facility] Gastroenter[facility] [phone] Tanisha Montana, CHUTE TAPPER Results 08/15/2025 Orders Only [place] [facility] [address] [phone] Provider, Abstract 08/07/2025 9:30 AM CDT Office Visit [facility] Gastroenterology[address] [phone] Yunier Montanae, CHUTE TAPPER Other dysphagia (Primary Dx); Ill-fitting dentures 07/22/2025 External Device Data [facility] ABSTRACTION Provider, Abstract 06/25/2025 External Device Data [facility] ABSTRACTION Provider, Abstract from Last 3 Months Social History Tobacco Use Types Packs/Day Years Used Date Smoking Tobacco: Every Day Cigarettes Tobacco Cessation:Ready to Q uit: Not Asked; Counseling Given: Not Answered Feeling Safe Answer Date Recorded Are you in a relationship wi th someone who hurts you emotionally and/or physically? No 04/17/2025 Sex and Gender Information Value Date Recorded Sex Assigned at Not on file Legal Sex Male 10:31 PM CDT Gender Identity Not on file Sexual Orientation Not on file Last Filed Vital Signs Vital Sign Reading Time Taken Comments Blood Pressure 138/80 08/07/2025 9:28 AM CDT Pulse 81 08/07/2025 9:28 AM CDT Temperature - - Respiratory Rate 15 04/17/2025 1:36 PM CDT Oxygen Saturation 97% 05/07/2025 1:28 PM CDT Inhaled Oxygen Concentration - - Weight 56.7 kg (125 lb) 08/07/2025 9:28 AM CDT Height 172.7 cm (5' 8 ) 08/07/2025 9:28 AM CDT Body Mass Index 19.01 08/07/2025 9:28 AM CDT Plan of Treatment Upcoming Encounters Date Type Department Care Team (Late st Contact Info) Description 08/06/2026 10:30 AM CDT Office Visit [facility] [place] [address] [place] [address] Haleyruthie Abdoulkacyjaime, CHUTE TAPPER [address] [facility] [address] [place] [address] Health Maintenance Due Date Last Done Comments RSV VACCINE (60+ or ) (1 - 1-dose 75+ series) 2024 INFLUENZA VACCINE (#1) 2025 , 09/08/2023, 09/10/2022, Additional history exists DTAP/TDAP/TD VACCINES (2 - T d or Tdap) 04/20/2027 04/20/2017, 12/27/2006 PNEUMOCOCCAL VACCINE 50+ YEARS Completed 0 01/15/2024, 04/20/2017, 04/14/2016, Additional history exists ZOSTER VACCINE Completed 03/20/2024, 01/15/2024 Procedures Procedure Name Priority Date/Time Associated Diagnosis Comments CT CHEST WO CONTRAST Routine 08/13/2025 8:14 AM CDT from Last 3 Months Results * CT CHEST WO CONTRAST (08/13/2025 8:14 AM CDT) Anatomical Region Laterality Modality Chest Computed Tomogra phy us Abstract Provider CT ORDERABLES Edited Result - Final from Last 3 Months [place] [id number] Advance Directives For more information, please contact: [phone] * Full Code (Latest Code Status on File) Date Activated Date Inactivated Comments 04/17/2025 12:11 PM 04/17/2025 3:45 PM
--- OUTSIDE RECORDS SUMMARY | 2025-09-09 18:51 | XMS_ITS | Clinical Summary ---
Author Organization 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 [place] [address]
--- OUTSIDE RECORDS SUMMARY | 2025-09-09 18:51 | XMS_ITS | Encounter Summary ---
Author Organization [facility] Address [address] [place] [address] Care Team Providers Care Claim Auditor Name Role Phone Unavailable Primary Care Provider Unavailabl e Reason for Referral * Eval and Treat (Routine) - Open Specialty Diagnoses / Procedures Referred By Nixon t Referred To Contact Otolaryngology Diagnoses Cricopharyngeal achalasia Procedures [place] OFFICE/OUTPATIENT ESTABLISHED MOD MDM 30 MIN [place] OFFICE/OUTPATIENT NEW MODERATE MDM 45 MINUTES Tanisha Montana FNP [address] [facility] [address] [place] [phone] Phone: tel: fax: [facility] [address] [place] [phone] Phone: tel: fax: Referral ID Status Reason Start Date Expiration Date Visits Re quested Visits Authorized [id number] Open 09/08/2025 09/08/2026 1 1 Reason for Visit * Reason Onset Date Comments Results 08/27/2025 Encounter Details Date Type Department Care Team (Late st Contact Info) Description 08/27/2025 Telephone [facility] Gastroenterology- [place] [address] [facility] [address] [place] [address] Tanisha Montana FNP [address] [phone] Results Social History Tobacco Use Types Packs/Day Years Used Date Smoking Tobacco: Every Day Cigarettes Feeling Safe Answer Date Recorded Are you in a relationship wi th someone who hurts you emotionally and/or physically? No 04/17/2025 Sex and Gender Information Value Date Recorded Sex Assigned at Not on file Legal Sex Male 10:31 PM CDT Gender Identity Not on file Sexual Orientation Not on file documented as of this encounter Miscellaneous Notes * Addendum Note - Charu Smith CMA - 09/08/2025 1:05 PM CDTAddended by: CHARU SMITH on: 09/08/2025 01:05 PM Modules accepted: Orders * Telephone Encounter - Charu Smith CMA - 09/08/2025 1:04 PM CDT Referral placed to ENT per providers request. Patient notified via telephone conversation. Patient acknowledged and agreed to the plan. * Telephone Encounter - Charu Smith CMA - 09/08/2025 11:25 AM CDT Spoke with patient via telephone regarding result/ recommendation letter. Patient has agreed to be seen by ENT. Please advise on diagnosis for ENT referral . Thanks Angela * Telephone Encounter - Charu Smith CMA - 08/27/2025 3:57 PM CDT Letter mailed with providers recommendations . documented in this encounter Plan of Treatment Upcoming Encounters Date Type Department Care Team (Late st Contact Info) Description 08/06/2026 10:30 AM CDT Office Visit [facility]- [place] [address] [facility] [address] [place] [phone] Tanisha Montana FNP [address] [place] [phone] Scheduled Referrals Name Type Priority Associated Diagnoses Orde r Schedule AMB REFERRAL TO ENT Outpatient Referral Routine Cricopharyngeal achalasia Ordered: 09/08/2025 documented as of this encounter Visit Diagnoses Diagnosis Cricopharyngeal achalasia- Primary Achalasia and cardiospasm documented in this encounter
--- NOTE | 2025-09-11 07:42 | DCPLANNER ---
messaged neuro for er f/u
== END 2025-09-09 17:55 | disposition home or self-care (01) ==
PROVIDERS: Emergency Provider Physician Assistant; PCP Family Medicine
DX: M79.2 Neuralgia and neuritis, unspecified (principal); Z79.82 Long term (current) use of aspirin; F17.210 Nicotine dependence, cigarettes, uncomplicated; I10 Essential (primary) hypertension
CPT/HCPCS: 99281

== ENCOUNTER → 2025-10-23 10:05 | Outpatient (BNVA) | payer OTHER, SELFPAY | PROVIDERS: PCP Family Medicine; Referring Provider Nurse Practitioner Family; Visit Provider Specialist | DX: M65.342 Trigger finger, left ring finger (principal); M79.2 Neuralgia and neuritis, unspecified; M79.602 Pain in left arm | CPT/HCPCS: 95909 ==